=== PATIENT | female | born 1965 | race Caucasian/White ===

== ENCOUNTER 2020-04-18 13:08 | Outpatient (CLI) | payer OTHER ==
--- NOTE | 2020-04-18 14:46 | XRAY Report ---
PROCEDURE: Chest 2 View X-Ray INDICATIONS: R05 feels like fluid in the lungs. Chest pressure. No cough. TECHNIQUE: 2 view(s) of the chest. COMPARISON: None. FINDINGS: Surgical changes and devices: None. Lungs and pleura: No pleural effusions or pneumothorax. Lungs are clear. Mediastinum: The aorta is prominent and tortuous. The cardiac contours are within normal limits. Bones and chest wall: No suspicious bony abnormalities. Mild, age-appropriate bony degenerative dunn ges can be seen. Soft tissues appear unremarkable. IMPRESSION: Normal plain films for age. Reviewed by: Chidi Hunt MD on 04/18/2020 1:45 PM DIONTE Approved by: Chidi Hunt MD on 04/18/2020 1:45 PM AKGALILEA Station ID: [id number]
== END 2020-04-18 13:09 | disposition home or self-care (01) ==
LOC: DI.S 13:08
PROVIDERS: ATTEND Naturopath
DX: R05 Cough (principal)
CPT/HCPCS: 71046